=== PATIENT | female | born 1975 | race Caucasian/White ===

== ENCOUNTER 2016-08-03 21:09 | Observation (INO) | payer MEDICARE | END 2016-08-08 11:03 | disposition home or self-care (01) | LOC: ER 21:09 → MS 08-04 04:30 | PROVIDERS: ADMIT Family Medicine | PROC: 3E0234Z Introduction of Serum, Toxoid and Vaccine into Muscle, Percutaneous Approach (ICD-10-PCS; principal; 2016-08-07) | DX: K52.9 Noninfective gastroenteritis and colitis, unspecified (principal); E87.6 Hypokalemia; G43.909 Migraine, unspecified, not intractable, without status migrainosus; R11.2 Nausea with vomiting, unspecified; E86.0 Dehydration; R19.5 Other fecal abnormalities; Z90.49 Acquired absence of other specified parts of digestive tract; Z90.710 Acquired absence of both cervix and uterus; Z80.6 Family history of leukemia; Z80.49 Family history of malignant neoplasm of other genital organs; Z80.0 Family history of malignant neoplasm of digestive organs; R42 Dizziness and giddiness; J02.9 Acute pharyngitis, unspecified; R07.9 Chest pain, unspecified; R30.0 Dysuria; Z23 Encounter for immunization ==